=== PATIENT | male | born 1980 | race Two or more races ===

== ENCOUNTER 2025-05-23 12:55 | Emergency (ER) | payer MEDICAID, OTHER ==
[~2025-05-23] VITALS: Ht 170.2 cm; Wt 90.0 kg
[2025-05-23 13:22] LABS: Hematocrit 50.9 % (41.0-53.0); Hemoglobin 17.3 g/dL (13.5-17.5); Mean Corpuscular Hemoglobin 26.5 pg (28.0-32.0); Mean Corpuscular Volume 77.9 fL (80.0-100.0); Nucleated Red Blood Cells % 0.1 %
[2025-05-23 13:26] LABS: Chloride 100 mmol/L (98-107); Potassium 4.3 mmol/L (3.5-5.1); Sodium 138 mmol/L (136-145)
[2025-05-23 13:27] LABS: Anion Gap 9 (5-15); Calcium 9.9 mg/dL (8.7-10.4); Carbon Dioxide 29 mmol/L (20-31)
[2025-05-23 13:31] VITALS: PULSE 90
[2025-05-23 13:32] LABS: BUN/Creatinine Ratio 14.0 (10.0-20.0); Blood Urea Nitrogen 16 mg/dL (9-23)
[2025-05-23 13:33] LABS: Glucose 120 mg/dL (74-106)
--- NOTE | 2025-05-23 13:35 | ED.PDOC ---
HPI Comments This is a 44 year-old male with a Hx of AAAand HTN, who presents to the ED with a chief complaint of substernal chest pain, Nausea, and back pain as of this morning. Upon ED evaluation, patients BP read 197/141. Patient has no further complaints at this time and denies symptoms of dizziness, weakness, palpitations, emesis, or fever. Chief Complaint: Chest Pain Time Seen by MD: 12:59 Reviewed Notes: Medications, Allergies Allergies: Coded Allergies: NO KNOWN ALLERGIES (Unverified , 05/23/25) Information Source: Patient Mode of Arrival: Ambulatory Severity: Moderate Timing: Hours Duration: Since onset Location: Substernal Radiation: Back Onset: At Rest, With Light Exertion, With Heavy Exertion Associated Signs and Symptoms: Back Pain, Other (N, chest pain ) Past Medical History PAST MEDICAL HISTORY: HTN Past Medical History (Other): AAA Surgical History: CABG Family History Family History: Unknown Social History Smoker: Unknown Alcohol: Unknown Drugs: Unknown Lives In: Home Constitutional: denies: chills, diaphoresis, fatigue, fever, malaise, sweats, weakness, others EENTM: denies: blurred vision, double vision, ear bleeding, ear discharge, ear drainage, ear pain, ear ringing, eye pain, eye redness, hearing loss, mouth pain, mouth swelling, nasal discharge, nose bleeding, nose congestion, nose pain, photophobia, tearing, throat pain, throat swelling, voice changes, others Respiratory: denies: cough, hemoptysis, orthopnea, SOB at rest, shortness of breath, SOB with excertion, stridor, wheezing, others Cardiovascular: reports: chest pain; denies: dizzy spells, diaphoresis, Dyspnea on exertion, edema, irregular heart beat, left arm pain, lightheadedness, palpitations, PND, syncope, others Gastrointestinal: reports: nausea; denies: abdomen distended, abdominal pain, blood streaked bowels, constipated, diarrhea, dysphagia, difficulty swallowing, hematemesis, melena, poor appetite, poor fluid intake, rectal bleeding, rectal pain, vomiting, others Genitourinary: denies: burning, dysuria, flank pain, frequency, hematuria, incontinence, penile discharge, penile sore, pain, testicle pain, testicle swelling, urgency, others Neurological: denies: dizziness, fainting, headache, left sided numbness, left sided weakness, numbness, paresthesia, pre-existing deficit, right sided numbness, right sided weakness, seizure, speech problems, tingling, tremors, weakness, others Musculoskeletal: denies: back pain, gout, joint pain, joint swelling, muscle pain, muscle stiffness, neck pain, others Integumetry: denies: bruises, change in color, change in hair/nails, dryness, laceration, lesions, lumps, rash, wounds, others Allergic/Immunocompromised: denies: Difficulty Healing, Frequent Infections, Hives, Itching, others Hematologic/Lymphatic: denies: anemia, blood clots, easy bleeding, easy bruising, swollen glands, others Endocrine: denies: excessive hunger, excessive sweating, excessive thirst, excessive urination, flushing, intolerance to cold, intolerance to heat, unexplained weight gain, unexplained weight loss, others Psychiatric: denies: anxiety, bipolar disorder, depression, hopeless, panic disorder, schizophrenia, sleepless, suicidal, others All Other Systems: Reviewed and Negative Physical Exam General Appearance: Moderate Distress HEENT: Normal ENT Inspection, Pharynx Normal, TMs Normal Neck: Full Range of Motion, Non-Tender, Normal, Normal Inspection Respiratory: Chest Non-Tender, Lungs Clear, No Accessory Muscle Use, No Respiratory Distress, Normal Breath Sounds Cardiovascular: No Edema, No JVD, No Murmur, No Gallop, Normal Peripheral Pulses, Regular Rate/Rhythm Breast Exam: Deferred Gastrointestinal: No Organomegaly, Non Tender, No Pulsatile Mass, Normal Bowel Sounds, Soft Genitalia: Deferred Pelvic: Deferred Rectal: Deferred Extremities: No calf tenderness, Normal capillary refill, Normal inspection, Normal range of motion, Non-tender, No pedal edema Musculoskeletal : Apperance: Normal Neurologic: Alert, manager market research II-XII nml as Tested, No Motor Deficits, Normal Affect, Normal Mood, No Sensory Deficits Cerebellar Function: Normal Reflexes: Normal Skin: Dry, Normal Color, Warm Peripheral Pulses: 3+ Radial (R), 3+ Radial (L) Lymphatic: No Adenopathy EKG EKG : Pulse Rate (adult): 82 Cardiac Rhythm: NSR Block: None Hypertrophy: LAE ST: Normal Was a procedure done? Was a procedure done?: No CP Differential Dx Differential Diagnosis: A-fib, A-Flutter, Angina, Anxiety / Panic Attack, Atrial Dysrhythmia, Electrolyte Disorder Differential Diagnosis: HTN Essential Differential Diagnosis: Angina, Chest Wall Pain, Gastritis X-Ray, Labs, Meds, VS Vital Signs Date Time Temp Pulse Resp B/P (MAP) Pulse Ox O2 Delivery O2 Flow Rate FiO2 05/23/25 17:25 99 16 155/107 (123) 96 05/23/25 17:20 98 19 160/114 (129) 95 05/23/25 17:10 98.0 101 19 172/118 (136) 95 98.0 05/23/25 16:45 188/137 05/23/25 16:40 189/129 05/23/25 16:36 189/129 05/23/25 14:42 86 17 155/107 (123) 95 05/23/25 14:37 83 16 159/115 (130) 96 05/23/25 14:31 83 159/115 05/23/25 14:30 83 16 159/115 05/23/25 14:09 91 14 179/146 05/23/25 14:09 91 179/146 05/23/25 14:08 98.1 91 14 179/146 (157) 99 98.1 05/23/25 14:05 86 05/23/25 13:55 98.4 91 20 194/137 (156) 97 98.4 05/23/25 13:35 82 05/23/25 13:31 90 05/23/25 13:16 197/141 (159) 05/23/25 13:00 82 05/23/25 13:00 97.6 91 16 193/139 (157) 97 97.6 05/23/25 12:55 97.6 91 16 193/139 97 97.6 Lab Test 05/23/25 16:35 05/23/25 16:01 05/23/25 14:03 05/23/25 13:12 Range/Units Troponin I High Sensitivity 6 7 57 *H 6 </=54 ng/L White Blood Count 15.8 H 4.4-10.8 10^3/uL Red Blood Count 6.54 H 4.5-5.90 10^6/uL Hemoglobin 17.3 13.5-17.5 g/dL Hematocrit 50.9 41.0-53.0 % Mean Corpuscular Volume 77.9 L 80.0-100.0 fL Mean Corpuscular Hemoglobin 26.5 L 28.0-32.0 pg Mean Corpuscular Hemoglobin Concent 34.0 32.0-36.0 g/dL Red Cell Distribution Width 15.3 H 11.8-14.3 % Platelet Count 339 140-450 10^3/uL Mean Platelet Volume 6.6 L 6.9-10.8 fL Neutrophils (%) (Auto) 86.4 H 37.0-80.0 % Lymphocytes (%) (Auto) 7.2 L 10.0-50.0 % Monocytes (%) (Auto) 5.8 0.0-12.0 % Eosinophils (%) (Auto) 0.2 0.0-7.0 % Basophils (%) (Auto) 0.4 0.0-2.0 % Neutrophils # (Auto) 13.6 H 1.6-8.6 10 ^3/uL Lymphocytes # (Auto) 1.1 0.4-5.4 10 ^3/uL Monocytes # (Auto) 0.9 0-1.3 10 ^3/uL Eosinophils # (Auto) 0 0-0.8 10 ^3/uL Basophils # (Auto) 0.1 0-0.2 10 ^3/uL Nucleated Red Blood Cells 0.1 % Sodium Level 138 136-145 mmol/L Potassium Level 4.3 3.5-5.1 mmol/L Chloride Level 100 98-107 mmol/L Carbon Dioxide Level 29 20-31 mmol/L Anion Gap 9 5-15 Blood Urea Nitrogen 16 9-23 mg/dL Creatinine 1.14 0.700-1.30 mg/dL Glomerular Filtration Rate Calc 82 >90 mL/min BUN/Creatinine Ratio 14.0 10.0-20.0 Serum Glucose 120 H 74-106 mg/dL Calcium Level 9.9 8.7-10.4 mg/dL Current Medications Medications (Trade) Dose Ordered Sig/Ashley Route Start Time Stop Time Status Last Admin Labetalol HCl (Labetalol HCl) 10 mg ONCE ONCE IV 05/23/25 13:30 05/23/25 13:31 DC 05/23/25 14:09 Morphine Sulfate 4 mg ONCE ONCE IV 05/23/25 13:30 05/23/25 13:31 DC 05/23/25 14:09 Ondansetron HCl (Zofran) 4 mg ONCE ONCE IV 05/23/25 13:30 05/23/25 13:31 DC 05/23/25 14:09 Nicardipine/ Sodium Chloride 200 ml @ 50 mls/hr Q4H IV 05/23/25 16:30 05/23/25 16:49 DC 05/23/25 16:40 Lisinopril (Zestril Tablet) 10 mg ONCE ONCE PO 05/23/25 16:30 05/23/25 16:31 DC 05/23/25 16:36 Patient alert. Complaining of chest pain. History of aortic stent. Vitals stable. Chest x-ray reviewed does show leaking aortic stent area with pericardial effusion. Establish intravenous access. Blood pressure elevated. Was given labetalol. Was given morphine. Was given Zofran. Transferred for higher level of care. CT chest abdomen is dissecting existing aorta near the stent area. Transfer for higher level of care. Explained to the patient. Continue monitoring. Time of 1ST Reevaluation: 13:34 Reevaluation 1ST: Unchanged Patient Education/Counseling: Diagnosis, Treatment Family Education/Counseling: No Family Present SEPSIS Sepsis Screen Date sepsis recognized/suspect: May 23, 2025 Time Sepsis recognized/suspect: 1312 Recent Procedure: No On Antibiotic Therapy: No Respiratory Rate >20: No Heart Rate >90: No Temp<36 C (96.8 F) or >38.3 C: No SBP <90 or MAP <65 mmHG: No New Acute Mental Status Change: No Is the patient on CPAP, BIPAP,: No Physician Orders Electrocardigram (05/23/25 13:59) Electrocardigram (05/23/25 15:59) Chest Xray 1 View (05/23/25 12:59) Imaging Transfer Request (05/23/25 15:02) Ct Angio Abd Aorta W Run Off (05/23/25 15:09) Troponin-I Hs (05/23/25 17:29) Troponin-I Hs (05/23/25 19:29) Ct Angio Chest Contrast (05/23/25 16:47) Esmolol Hcl 10mg/Ml (Brevibloc) (05/23/25 17:00) Vital Signs Date Time Temp Pulse Resp B/P (MAP) Pulse Ox O2 Delivery O2 Flow Rate FiO2 05/23/25 17:25 99 16 155/107 (123) 96 05/23/25 17:20 98 19 160/114 (129) 95 05/23/25 17:10 98.0 101 19 172/118 (136) 95 98.0 05/23/25 16:45 188/137 05/23/25 16:40 189/129 05/23/25 16:36 189/129 05/23/25 14:42 86 17 155/107 (123) 95 05/23/25 14:37 83 16 159/115 (130) 96 05/23/25 14:31 83 159/115 05/23/25 14:30 83 16 159/115 05/23/25 14:09 91 14 179/146 05/23/25 14:09 91 179/146 05/23/25 14:08 98.1 91 14 179/146 (157) 99 98.1 05/23/25 14:05 86 05/23/25 13:55 98.4 91 20 194/137 (156) 97 98.4 05/23/25 13:35 82 05/23/25 13:31 90 05/23/25 13:16 197/141 (159) 05/23/25 13:00 82 05/23/25 13:00 97.6 91 16 193/139 (157) 97 97.6 05/23/25 12:55 97.6 91 16 193/139 97 97.6 Laboratory Tests Test 05/23/25 13:12 White Blood Count 15.8 10^3/uL (4.4-10.8) H Medications Medications Dose Ordered Sig/Ashley Route Start Time Stop Time Status Last Admin Dose Admin Labetalol HCl 10 mg ONCE ONCE IV 05/23/25 13:30 05/23/25 13:31 DC 05/23/25 14:09 Lisinopril 10 mg ONCE ONCE PO 05/23/25 16:30 05/23/25 16:31 DC 05/23/25 16:36 Morphine Sulfate 4 mg ONCE ONCE IV 05/23/25 13:30 05/23/25 13:31 DC 05/23/25 14:09 Nicardipine/ Sodium Chloride 200 ml @ 50 mls/hr Q4H IV 05/23/25 16:30 05/23/25 16:49 DC 05/23/25 16:40 Ondansetron HCl 4 mg ONCE ONCE IV 05/23/25 13:30 05/23/25 13:31 DC 05/23/25 14:09 Departure 1 Departure Time of Disposition: 14:30 Impression: Primary Impression: Dissecting aneurysm of aorta Additional Impression: Chest pain of unknown etiology Disposition: 02 SHORT TERM HOSPITAL Admit to: Med Surg Condition: Guarded Critical Care Note Critical Care Time?: Yes (90 min-critical care time only) Stability Stability form required: No Heart Score Heart Score: Heart Score Response (Comments) Value History Slightly Suspicious 0 EKG Normal 0 Age <45 0 Risk Factors 1 or 2 risk factors 1 Troponin Normal limit 0 Total 1 I personally scribed for KRISTIAN PEDRO MD ([facility]) on 05/23/25 at 13:35. Electronically submitted by Deb Bower ([facility]). KRISTIAN PEDRO MD May 23, 2025 13:35
[2025-05-23] MEDS: LABETALOL HCL 20 MG/4 ML VL IV ONE (14:09)
[2025-05-23] MEDS: ONDANSETRON HCL 4 MG/2 ML VIAL IV ONE (14:09)
[2025-05-23] MEDS: MORPHINE SULFATE 4 MG/ML SYR/VIAL IV ONE (14:09)
--- NOTE | 2025-05-23 14:17 | DVH ---
CHEST RADIOGRAPH Indication: CP Technique: Single frontal view of the chest was obtained Comparison: None FINDINGS: Lines and Tubes: Sternal wire sutures Lungs: No focal consolidation. Pleura: No effusion. No pneumothorax. Cardiomediastinal contours: Cardiomegaly. Aortic stent in place. Findings suggest leaking aortic stent with bleeding into wall of the aorta into the mediastinum and into the pericardium. pericardial sac. Recommend contrast CT chest. CRITICAL FINDINGS Critical Result: POSSIBLE LEAKING AORTIC STENT AND PERICARDIAL EFFUSION AND FLUID AROUND THE STENT. Findings discussed with Lesia RO, at 05/23/2025 01:53 PM, and acknowledged receipt and understanding of the findings. .. Bones: No acute osseous abnormality. IMPRESSION: 1. No acute cardiopulmonary disease.
--- NOTE | 2025-05-23 14:53 | ECG ---
[facility] Test Date: 2025-05-23 Test Time: 14:05:05 Pat Name: RAMIRO RIVERA Department: ED Room: Gender: M Data Entry: COREY : 1980 Requested By: KRISTIAN PEDRO Order Number: [id number] Reading MD: Sudheer Steinberg Measurements Intervals [place] Rate: 86 P: 29 MT: 163 QRS: -2 QRSD: 102 T: 197 QT: 414 QTc: 496 Interpretive Statements Sinus rhythm Consider left atrial enlargement LVH with secondary repolarization abnormality Borderline prolonged QT interval Electronically Signed On 05-25-2025 15:02:51 PST by Sudheer Steinberg Please click the below link to view image of tracing.
[2025-05-23] MEDS: IOHEXOL 350 MG/ML 100ML IJ ONE ×2 (15:17→17:05)
[2025-05-23] MEDS: LISINOPRIL 5 MG TAB PO ONE (16:36)
--- NOTE | 2025-05-23 16:39 | DVH ---
CTA ABDOMINAL AORTA WITH BILATERAL LOWER EXTREMITY RUNOFF WITH CONTRAST INDICATION: Aortic endoleak COMPARISON: None TECHNIQUE: Axial CT images of the abdomen and bilateral lower extremities are obtained at 1 mm collimation in the early arterial phase after intravenous contrast administration. Coronal maximum intensity projection (MIP) images are provided. 3-D images of the abdominal aorta and bilateral lower extremity arteries were constructed on an independent workstation. Radiation optimization: All CT scans at this facility use at least one of these dose optimization techniques: Automated exposure control mA and/or kV adjustment per patient size (includes targeted exams where dose is matched to clinical indication) or iterative reconstruction. CONTRAST: 100 mL omnipaque 350 RADIATION DOSE: CTDI: 54 mGy DLP: 1406 mGy-cm FINDINGS: AORTA: There is partial visualization of a descending thoracoabdominal aortic dissection. The inferior-most portion of a thoracic aortic endograft is visualized, terminating at the level of the diaphragmatic hiatus. Just above the diaphragm, the descending aorta measures approximately 9.6 cm (measured perpend icular to the course of the descending aorta in the coronal plane). Just below the inferior end of the endograft, there is leakage into the aneurysm sac/false lumen which ascends into the thorax. There is an additional perforation in the flap with leakage of contrast into the false lumen from the left aspect of the upper abdominal aorta just superior to the origin of the left renal artery. The abdominal aorta is severely tortuous. The caliber of the aorta is normal below the renal arteries and there is no further evidence of dissection or aneurysm. The celiac, SMA, NIKKY, and renal arteries are widely patent and are supplied by the true lumen. RIGHT LOWER EXTREMITY RUN-OFF: Common iliac: Patent without hemodynamically significant stenosis. External iliac: Patent without hemodynamically significant stenosis. Internal iliac: Patent without hemodynamically significant stenosis. LAB SYSTEMS ANALYST: Patent without hemodynamically significant stenosis. SFA: Patent without hemodynamically significant stenosis. Profunda Femoris: Patent without hemodynamically significant stenosis. Popliteal: Not opacified. No aneurysm or abnormal medial deviation is noted. Anterior Tibial: Not opacified. Tibioperoneal Trunk: Not opacified. Peroneal: Not opacified. Posterior Tibial: Not opacified. Dorsalis Pedis: Not opacified. The common and lateral plantar arteries are not opacified. LEFT LOWER EXTREMITY RUN-OFF: Common iliac: Patent without hemodynamically significant stenosis. External iliac: Patent without hemodynamically significant stenosis. Internal iliac: Patent without hemodynamically significant stenosis. LAB SYSTEMS ANALYST: Patent without hemodynamically significant stenosis. SFA: Patent without hemodynamically significant stenosis. Profunda Femoris: Patent without hemodynamically significant stenosis. Popliteal: Not opacified. No aneurysm or abnormal medial deviation is noted. Anterior Tibial: Not opacified. Tibioperoneal Trunk: Not opacified. Peroneal: Not opacified. Posterior Tibial: Not opacified. Dorsalis Pedis: Not opacified. The common and lateral plantar arteries are not opacified. ADDITIONAL FINDINGS: There is mild atelectasis at the medial base of the left lower lobe secondary to mass effect from the aortic aneurysm. There is no pleural effusion. There is trace fluid in the mediastinum posterior to the descending aorta. The spleen is not enlarged. The liver is normal in size and contour. No calcified gallstone is identified. The pancreas is grossly unremarkable. The adrenal glands appear normal. The kidneys enhance symmetrically. There is no hydronephrosis of either kidney. No pathologic lymphadenopathy is identified by size criteria. There is no distention of the small bowel. The urinary bladder is grossly unremarkable. IMPRESSION: Thoracoabdominal aortic dissection with thoracic endograft ending at the level of the level of the diaphragmatic hiatus. Just above the diaphragm, the descending aorta measures approximately 9.6 cm (measured perpendicular to the course of the descending aorta in the coronal plane). Just below the inferior end of the endograft, there is leakage into the aneurysm sac/false lumen which ascends into the thorax. There is an additional perforation in the flap with leakage of contrast into the false lumen from the left aspect of the upper abdominal aorta just superior to the origin of the left renal artery. There is a small amount of fluid in the mediastinum posterior to the descending aorta that is concerning for impending rupture. STAT consultation with thoracic/vascular surgery is recommended. Note that the chest with the majority of the thoracic aorta was not included on this study. Thoracic aortic endoleak Critical Result: Aoritc Dissection/aneurysm Findings discussed with KRISTIAN PEDRO at 05/23/2025 04:21 PM, and acknowledged receipt and understanding of the findings. #CRITICAL#
[2025-05-23] MEDS: ESMOLOL HCL 10MG/ML 250 ML IV SCH (17:46)
--- NOTE | 2025-05-23 18:02 | DVH ---
Exam: CT CT ANGIO CHEST CONTRAST Reason for study/ Clinical History: [facility] Comparison Study: XY CHEST XRAY 1 VIEW on DOS: 05/23/25 Exam Date: 05/23/2025 04:57 PM Radiation Dose Information: CT Dose: CTDI volume is 35.52 mGy. Dose-length product is 1277.22 mGy*cm TECHNIQUE: Multidetector CTA of the chest was performed of the chest with intravenous contrast. PULMONARY ANGIOGRAPHY PROTOCOL was utilized using a bolus- tracking technique centered on the main pulmonary artery. Axial, coronal and sagittal multiplanar and MIP reformats were performed. Findings: Lower neck: Unremarkable. Lungs and Pleura: Left lung atelectasis secondary to mass effect from the underlying mediastinal hematoma.. No pleural effusions. Lymph nodes: No mediastinal, hilar, or axillary lymphadenopathy. Cardiovascular and Mediastinum: Postprocedural changes with endograft seen extending from the aortic arch into the distal thoracic aorta. In the superior aspect of the thoracic endograft, there is contrast extravasation /endoleak seen, with resultant mediastinal hemorrhage extending outside the endograft. This measures up to 10.3 cm in maximum axial dimension in the distal thoracic aorta. Pulmonary arteries: No central pulmonary emboli. Osseous and soft tissues: No suspicious osseous lesions. Upper abdomen: See separate CT abdomen/pelvis of the same day. IMPRESSION: Postprocedural changes with endograft seen extending from the aortic arch into the distal thoracic aorta. In the superior aspect of the thoracic endograft, there is contrast extravasation /endoleak seen, with resultant mediastinal hemorrhage extending outside the endograft. Recommend emergent vascular and cardiothoracic surgery consultation. Comparison with prior imaging if available would be greatly helpf ul for further evaluation. The findings were discussed with Dr. Eugene phone by Ted Hale MD on 05/23/2025 05:56 PM.
[2025-05-23 19:35] VITALS: PULSE 94; RESP 21; TEMP 99.8; O2SAT 94
[2025-05-23 19:45] VITALS: BP 130/84
--- NOTE | 2025-05-25 07:40 | ECG ---
[facility] Test Date: 2025-05-23 Test Time: 13:00:59 Pat Name: RAMIRO RIVERA [facility] ED Patient ID[id number] Room: Gender: Frame Stylist: sabine : 1980 Requested By: KRISTIAN PEDRO Order Number: [id number] Reading MD: Sudheer Steinberg Measurements Intervals [place] Rate: 82 P: 24 SD: 164 QRS: 4 QRSD: 111 T: 210 QT: 413 QTc: 483 Interpretive Statements Sinus rhythm Probable left atrial enlargement LVH with secondary repolarization abnormality Borderline prolonged QT interval Electronically Signed On 05-25-2025 15:02:49 PST by Sudheer Steinberg Please click the below link to view image of tracing.
== END 2025-05-23 20:08 | disposition short-term general hospital (02) ==
LOC: ER 12:55
DX: I71.00 Dissection of unspecified site of aorta (principal); R07.89 Other chest pain; I10 Essential (primary) hypertension; F17.200 Nicotine dependence, unspecified, uncomplicated; Z79.899 Other long term (current) drug therapy
CPT/HCPCS: 36415; 71045; 71275; 75635; 80048; 84484; 85025; 93005; 96374; 96375; 99291; 99292; J2270; J2404; J2405; Q9967; J3490